=== PATIENT | male | born 1965 | race Caucasian/White ===

== ENCOUNTER 2021-07-08 13:28 | Emergency (ER) | payer MEDICAID ==
[~2021-07-08] VITALS: Ht 175.3 cm; Wt 78.0 kg
[2021-07-08] MEDS ORDERED: CIPROFLOXACIN IV ONE (13:35)
[2021-07-08] MEDS ORDERED: FLAGYL/NS RTU 500 MG/100 ML PIGGYBACK IV ONE (13:35)
[2021-07-08] MEDS ORDERED: MAGNESIUM OXIDE 400 MG TABLET PO ONE ×2 (13:35→17:00)
--- NOTE | 2021-07-08 14:06 | NUR ---
TO ER BED 4, BIBRA 89 C/O ABDOMINAL PAIN X4HRS, NAUSEA & VOMITING "I ATE CHEESE AND SALSA LAST NIGHT". AAOX3, BREATHING EVEN AND NON LABORED, CONNECTED TO MONITOR
[2021-07-08] MEDS ORDERED: PANTOPRAZOLE 40 MG VIAL ONE (14:17)
[2021-07-08] MEDS ORDERED: ONDANSETRON HCL/PF 4 MG/2 ML VIAL ONE ×2 (14:18→17:17)
[2021-07-08] MEDS ORDERED: PANTOPRAZOLE 40 MG VIAL IV ONE (14:30)
[2021-07-08] MEDS ORDERED: ONDANSETRON HCL/PF - ER 4 MG/2 ML VIAL IV ONE ×2 (14:30→17:00)
[2021-07-08 14:32] LABS: BASOPHILS % (AUTO) 0.3 % (0.0-2.0); EOSINOPHILS % (AUTO) 0.1 % (0.0-6.0); HEMATOCRIT 48 % (39-51); HEMOGLOBIN 15.9 g/dL (13.5-17.5); LYMPHOCYTES # (AUTO) 0.7 K/uL (0.8-4.8); LYMPHOCYTES % (AUTO) 5.8 % (20.0-44.0); MEAN CORPUSCULAR HGB CONC 33 g/dl (31.0-36.0); MEAN CORPUSCULAR VOLUME 93 fL (80-96); MONOCYTES # (AUTO) 0.4 K/uL (0.1-1.30); MONOCYTES % (AUTO) 2.9 % (2.0-12.0); NEUTROPHILS # (AUTO) 11.6 K/uL (1.8-8.9); NEUTROPHILS % (AUTO) 90.9 % (43.0-81.0); PLATELET COUNT (AUTO) 322 K/uL (150-450); RED BLOOD CELL COUNT(AUTO) 5.16 MIL/uL (4.5-6.0); WHITE BLOOD COUNT (AUTO) 12.8 K/uL (4.3-11.0)
--- NOTE | 2021-07-08 14:38 | NUR ---
SALINE LOCK ESTABLISHED, BLOOD DRAWN AND PICKED UP BY LAB
[2021-07-08] MEDS ORDERED: CT SWABBABLE VALVE TRANS SET 1 EA INFUS.SET MC ONE (15:21)
[2021-07-08] MEDS ORDERED: IOHEXOL-300 100 ML VIAL IV ONE (15:21)
[2021-07-08] MEDS ORDERED: IV NS 0.9% 250 ML IV ONE (15:21)
[2021-07-08] MEDS ORDERED: MORPHINE SULFATE INJ 2 MG/ML DISP.SYRIN ONE ×2 (15:25→17:18)
[2021-07-08] MEDS: IV NS 0.9% 100 ML IV ONE ×2 (15:29→15:40)
[2021-07-08] MEDS ORDERED: MORPHINE SULFATE INJ 2 MG/ML DISP.SYRIN IV ONE ×2 (15:30→17:00)
[2021-07-08 15:32] LABS: ALANINE AMINOTRANSFERASE 29 U/L (12-78); ALBUMIN 4.5 g/dL (3.4-5.0); ALKALINE PHOSPHATASE 77 U/L (46-116); ASPARTATE AMINOTRANSFERASE 18 U/L (15-37); BILIRUBIN,DIRECT 0.1 mg/dL (0.0-0.2); BILIRUBIN,TOTAL 0.6 mg/dL (0.2-1.0); CALCIUM, SERUM 9.7 mg/dL (8.5-10.1); CARBON DIOXIDE 24 mmol/L (21-32); CHLORIDE 104 mmol/L (98-107); CREATININE 1.3 mg/dL (0.6-1.3); GLUCOSE 145 mg/dL (74-106); LIPASE 68 U/L (73-393); POTASSIUM 3.4 mmol/L (3.5-5.1); SODIUM SERUM 143 mmol/L (136-145); TOTAL PROTEIN, SERUM 8.1 g/dL (6.4-8.2); UREA NITROGEN, BLOOD 14 mg/dL (7-18)
--- NOTE | 2021-07-08 15:35 | NUR ---
PT TAKEN TO CT VIA ESPINOZA
[2021-07-08 15:56] LABS: ALCOHOL, BLOOD < 3 mg/dL (0-0)
[2021-07-08] MEDS ORDERED: IV NS 0.9% 1,000 ML IV ONE ×2 (16:00→17:30)
--- NOTE | 2021-07-08 16:42 | NUR ---
URINE COLLECTED AND SENT TO THE LAB
[2021-07-08] MEDS ORDERED: POTASSIUM CHLORIDE 20 MEQ TAB.PRT.SR PO ONE ×2 (17:00→17:18)
[2021-07-08] MEDS ORDERED: CIPROFLOXACIN IV RTU 400 MG in PREMIX 1 EA IV SCH (17:00)
[2021-07-08] MEDS ORDERED: KETOROLAC TROMETHAMINE INJ 30 MG/ML VIAL IV ONE (17:00)
[2021-07-08] MEDS ORDERED: METRONIDAZOLE 500MG/ NS 100ML 500 MG in PREMIX 1 EA IV SCH (17:00)
[2021-07-08] MEDS ORDERED: KETOROLAC TROMETHAMINE 15 MG/ML VIAL ONE (17:01)
[2021-07-08] MEDS ORDERED: CIPR-262 PO (17:03)
[2021-07-08] MEDS ORDERED: METR500T PO (17:03)
[2021-07-08] MEDS ORDERED: ONDA4TAB5 PO (17:04)
[2021-07-08] MEDS ORDERED: DICL50TA7 PO (17:04)
--- NOTE | 2021-07-08 18:30 | NUR ---
IV removed. Catheter intact and site benign. Pressure and 4x4 applied to site. No bleeding noted.Patient discharged to home in stable condition. Written and verbal after care instructions given. Patient verbalizes understanding of instruction.
[2021-07-08 18:32] VITALS: BP 139/90
== END 2021-07-08 18:33 | disposition home or self-care (01) ==
LOC: ER 13:34
DX: K51.00 Ulcerative (chronic) pancolitis without complications (principal); E86.0 Dehydration; E87.6 Hypokalemia; E83.42 Hypomagnesemia; K21.9 Gastro-esophageal reflux disease without esophagitis; Z79.899 Other long term (current) drug therapy
CPT/HCPCS: 36415; 74177; 80048; 80076; 80307; 80320; 83690; 83735; 85025; 96361; 96365; 96367; 96375; 96376; 99284; C9113; J0744; J1885; J2270 ×2; J2405 ×3; J7030 ×3; J7050; Q9967; G0480

== ENCOUNTER 2023-05-21 13:33 | Emergency (ER) | payer BC, MEDICAID ==
[~2023-05-21] VITALS: Ht 175.3 cm; Wt 78.0 kg
[~2023-05-21 13:33] MED LIST: CIPR-262 PO; DICL50TA7 PO; METR500T PO; ONDA4TAB5 PO
[2023-05-21] MEDS ORDERED: ONDANSETRON HCL/PF 4 MG/2 ML VIAL ONE (14:18)
[2023-05-21] MEDS ORDERED: IV NS 0.9% 250 ML BAG IV ONE (14:30)
[2023-05-21] MEDS ORDERED: ONDANSETRON HCL/PF 4 MG/2 ML VIAL IV ONE (14:30)
[2023-05-21] MEDS ORDERED: HALOPERIDOL LACTATE INJ 5 MG/ML VIAL IV ONE (15:30)
[2023-05-21] MEDS ORDERED: IV NS 0.9% 1,000 ML BAG IV ONE (15:30)
[2023-05-21] MEDS ORDERED: PANTOPRAZOLE 40 MG VIAL IV ONE (15:30)
[2023-05-21] MEDS ORDERED: HYDROMORPHONE INJ 2 MG/ML DISP.SYRIN IV ONE (15:30)
[2023-05-21] MEDS ORDERED: PANTOPRAZOLE 40 MG VIAL ONE (15:31)
[2023-05-21] MEDS ORDERED: HYDROMORPHONE 1 MG/1 ML DISP.SYRIN ONE (15:31)
[2023-05-21] MEDS ORDERED: HALOPERIDOL LACTATE INJ 5 MG/ML VIAL ONE (15:31)
[2023-05-21 15:50] LABS: BASOPHILS # (AUTO) 0.3 K/uL (0.0-0.2); BASOPHILS % (AUTO) 2.4 % (0.0-2.0); EOSINOPHILS % (AUTO) 0.2 % (0.0-6.0); HEMATOCRIT 43 % (39-51); HEMOGLOBIN 14.3 g/dL (13.5-17.5); LYMPHOCYTES # (AUTO) 0.5 K/uL (0.8-4.8); LYMPHOCYTES % (AUTO) 3.7 % (20.0-44.0); MEAN CORPUSCULAR HEMOGLOBIN 31 PG (26.0-33.0); MEAN CORPUSCULAR HGB CONC 33 g/dl (31.0-36.0); MEAN CORPUSCULAR VOLUME 93 fL (80-96); MONOCYTES # (AUTO) 0.3 K/uL (0.1-1.30); MONOCYTES % (AUTO) 2.3 % (2.0-12.0); NEUTROPHILS # (AUTO) 12.5 K/uL (1.8-8.9); NEUTROPHILS % (AUTO) 91.4 % (43.0-81.0); PLATELET COUNT (AUTO) 244 K/uL (150-450); RED BLOOD CELL COUNT(AUTO) 4.64 MIL/uL (4.5-6.0); RED CELL DISTRIBUTION WIDTH 13.4 % (11.5-15.0); WHITE BLOOD COUNT (AUTO) 13.7 K/uL (4.3-11.0)
[2023-05-21 15:58] LABS: CALCIUM, SERUM 9.1 mg/dL (8.5-10.1); CREATININE 1.2 mg/dL (0.6-1.3); POTASSIUM 3.4 mmol/L (3.5-5.1)
[2023-05-21 16:03] LABS: BILIRUBIN,DIRECT 0.2 mg/dL (0.0-0.2); BILIRUBIN,TOTAL 0.9 mg/dL (0.2-1.0); TOTAL PROTEIN, SERUM 7.3 g/dL (6.4-8.2)
[2023-05-21] MEDS ORDERED: IV NS 0.9% 250 ML IV ONE (16:18)
[2023-05-21] MEDS ORDERED: IOHEXOL-300 100 ML VIAL IV ONE (16:18)
[2023-05-21] MEDS ORDERED: PIPERACI/TAZO 3.375GM/D5W 50ML PB IV ONE (17:27)
[2023-05-21] MEDS ORDERED: PIPERACILLIN /TAZOBACTAM 3.375 G in IV D5W 50 ML IV ONE (17:30)
[2023-05-21] MEDS ORDERED: HYDR-3973 PO (18:09)
[2023-05-21] MEDS ORDERED: AMOX-430 PO (18:09)
[2023-05-21] MEDS ORDERED: ONDA4TAB5 PO (18:09)
[2023-05-21 18:57] VITALS: BP 144/102; TEMP 97.7; O2SAT 99
== END 2023-05-21 18:57 | disposition home or self-care (01) ==
LOC: ER 13:34
DX: K57.32 Diverticulitis of large intestine without perforation or abscess without bleeding (principal); K21.9 Gastro-esophageal reflux disease without esophagitis
CPT/HCPCS: 99285; 74177; 96365; 96375; 71045; 96361; 93005; 85025; 80048; 83690; 80076; 36415; J1630; J2405; J2543 ×2; J7060; J7030 ×2; J7050; C9113; Q9967; J1170

== ENCOUNTER 2025-01-29 12:43 | Emergency (ER) | payer MEDICAID ==
[~2025-01-29] VITALS: Ht 175.3 cm; Wt 78.0 kg
[~2025-01-29 12:43] MED LIST changes: +AMOX-430 PO; +HYDR-3973 PO
[2025-01-29 12:48] VITALS: TEMP 98.5
[2025-01-29] MEDS ORDERED: ONDANSETRON HCL/PF 4 MG/2 ML VIAL ONE ×2 (12:48→13:37)
[2025-01-29] MEDS ORDERED: MORPHINE SULFATE INJ 4 MG/ML DISP.SYRIN ONE ×2 (12:49→13:37)
[2025-01-29] MEDS: MORPHINE SULFATE INJ 2 MG/ML DISP.SYRIN IV ONE ×2 (13:00→13:45)
[2025-01-29] MEDS: IV NS 0.9% 1,000 ML BAG IV ONE (13:00)
[2025-01-29] MEDS: ONDANSETRON HCL/PF 4 MG/2 ML VIAL IVP ONE ×2 (13:00→13:44)
[2025-01-29 13:04] LABS: BASOPHILS # (AUTO) 0.1 K/uL (0.0-0.2); BASOPHILS % (AUTO) 0.5 % (0.0-2.0); EOSINOPHILS # (AUTO) 0.1 K/uL (0.0-0.7); EOSINOPHILS % (AUTO) 0.5 % (0.0-6.0); HEMATOCRIT 47 % (39-51); LYMPHOCYTES # (AUTO) 2.5 K/uL (0.8-4.8); LYMPHOCYTES % (AUTO) 19.1 % (20.0-44.0); MEAN CORPUSCULAR HEMOGLOBIN 32 PG (26.0-33.0); MEAN CORPUSCULAR HGB CONC 34 g/dl (31.0-36.0); MEAN CORPUSCULAR VOLUME 93 fL (80-96); MONOCYTES # (AUTO) 1.2 K/uL (0.1-1.30); MONOCYTES % (AUTO) 9.6 % (2.0-12.0); NEUTROPHILS # (AUTO) 9.1 K/uL (1.8-8.9); NEUTROPHILS % (AUTO) 70.3 % (43.0-81.0); PLATELET COUNT (AUTO) 258 K/uL (150-450); RED BLOOD CELL COUNT(AUTO) 5.08 MIL/uL (4.5-6.0); RED CELL DISTRIBUTION WIDTH 13.2 % (11.5-15.0); WHITE BLOOD COUNT (AUTO) 12.9 K/uL (4.3-11.0)
[2025-01-29 13:21] LABS: ALBUMIN 4.5 g/dL (3.4-5.0); BILIRUBIN,DIRECT 0.3 mg/dL (0.0-0.2); BILIRUBIN,TOTAL 1.5 mg/dL (0.2-1.0); CALCIUM, SERUM 10.2 mg/dL (8.5-10.1); CREATININE 1.2 mg/dL (0.6-1.3); POTASSIUM 3.4 mmol/L (3.5-5.1); TOTAL PROTEIN, SERUM 8.5 g/dL (6.4-8.2)
[2025-01-29 14:44] LABS: APPEARANCE,URINE CLEAR (CLEAR); BILIRUBIN,URINE NEGATIVE (NEGATIVE); BLOOD, URINE NEGATIVE Ery/uL (NEGATIVE); COLOR,URINE YELLOW (YELLOW); KETONES,URINE 3+ mg/dL (NEGATIVE); LEUKOCYTE ESTERASE ,URINE NEGATIVE (NEGATIVE); NITRITE, URINE NEGATIVE (NEGATIVE); PROTEIN,URINE TRACE mg/dl (NEGATIVE); UGLUCOSE NEGATIVE (NEGATIVE); UROBILINOGEN,URINE 0.2 EU/dL (0.2)
[2025-01-29] MEDS ORDERED: HALOPERIDOL LACTATE INJ 5 MG/ML VIAL ONE (14:53)
[2025-01-29] MEDS: HALOPERIDOL LACTATE INJ 5 MG/ML VIAL IM ONE (14:58)
[2025-01-29 14:59] LABS: RBC,URINE 0-2 /HPF (0-2)
[2025-01-29 15:00] LABS: ADD URINE CULTURE YES; BACTERIA,URINE 1+ /HPF (None Seen); MUCUS,URINE Few /LPF (None Seen); SQUAMOUS EPITHELIAL CELL,UR Few /HPF (None Seen); WBC,URINE 0-2 /HPF (0-3)
[2025-01-29] MEDS ORDERED: DICL50TA7 PO (15:59)
[2025-01-29 16:38] VITALS: BP 145/87; O2SAT 99
== END 2025-01-29 16:37 | disposition home or self-care (01) ==
LOC: ER 12:46
DX: R10.9 Unspecified abdominal pain (principal); R11.2 Nausea with vomiting, unspecified; K21.9 Gastro-esophageal reflux disease without esophagitis; F19.10 Other psychoactive substance abuse, uncomplicated
CPT/HCPCS: 99285; 74176; 96374; 96361; 96375; 93005; 96376; 85025; 80048; 87086; 83690; 80076; 81001; 36415; 96372; J1630; J2270 ×2; J2405 ×2; J7030